=== PATIENT | female | born 1975 | race Asian ===

== ENCOUNTER 2022-05-20 09:11 | Outpatient (CLI) | payer BC | END 2022-05-20 09:12 | disposition home or self-care (01) | LOC: CSHMAMMO 09:11 | PROVIDERS: ATTEND Internal Medicine | DX: Z12.31 Encounter for screening mammogram for malignant neoplasm of breast (principal) | CPT/HCPCS: 77063; 77067 ==

== ENCOUNTER 2023-07-18 11:39 | Outpatient (CLI) | payer BC, OTHER | END 2023-07-18 11:40 | disposition home or self-care (01) | LOC: EDSEX → CSHMAMMO 11:39 | PROVIDERS: ATTEND Internal Medicine | DX: Z12.31 Encounter for screening mammogram for malignant neoplasm of breast (principal) | CPT/HCPCS: 77063; 77067 ==